=== PATIENT | male | born 2000 | race African-American/Black ===

== ENCOUNTER 2022-10-07 10:11 | Outpatient (CLI) | payer BC, SELFPAY ==
--- NOTE | 2022-10-07 10:15 | CRLHL7_ITS ---
For Patients: As a result of the Century Cures Act, medical imaging exams and procedure reports are released immediately into your electronic medical record. You may view this report before your referring provider. If you have questions, please contact your health care provider. Technique: Double-contrast upper GI/small bowel follow-through performed after the uneventful administration of effervescent crystals and thick barium followed by thin barium. Fluoroscopy time 2 minutes 3 seconds. Indication: VOMITING, UNSPECIFIED VOMITING TYPE Comparison: Esophagram 08/10/2021 Findings: Swallowing mechanism: Normal. Esophageal motility: Normal. Gastroesophageal reflux: Spontaneous reflux noted in the upright and oblique from positions to the proximal esophagus Hernia: None. Esophagus, stomach and duodenal bulb mucosa: Normal mucosa. No stricture or mass. Small bowel colon transit time 60 minutes. No inflammatory changes. No stricture or fistula. No evidence of plantar bowel disease. Impression: Spontaneous reflux to the proximal esophagus. The remainder of the upper GI/small bowel follow-through exam is normal. Dictated by Tolu Garcia MD @ 10/07/2022 1:00:04 PM (Electronically Signed)
== END 2022-10-07 10:12 | disposition home or self-care (01) ==
PROVIDERS: PCP Family Medicine; Visit Provider Internal Medicine Gastroenterology
DX: R11.10 Vomiting, unspecified (principal); K21.9 Gastro-esophageal reflux disease without esophagitis
CPT/HCPCS: 74246; 74248